=== PATIENT | male | born 1970 | race Caucasian/White ===

== ENCOUNTER 2019-04-24 14:40 | Outpatient (RCR) | payer OTHER | END 2019-05-20 10:26 | disposition home or self-care (01) | LOC: WSOH 14:40 | DX: S61.431A Puncture wound without foreign body of right hand, initial encounter (principal); W55.01XA Bitten by cat, initial encounter; Y92.214 College as the place of occurrence of the external cause; Y99.0 Civilian activity done for income or pay ==